=== PATIENT | male | born 1975 | race Two or more races ===

== ENCOUNTER 2024-03-22 21:09 | Emergency (ER) | payer OTHER ==
[~2024-03-22] VITALS: Ht 180.3 cm; Wt 139.0 kg
[2024-03-22] MEDS ORDERED: FLUORESCEIN SOD OPTH TEST STRIP LEFTEYE ONE (23:30)
[2024-03-22] MEDS ORDERED: IBUP-1455 PO (23:35)
[2024-03-22] MEDS ORDERED: CIPR0.3S67 OP (23:35)
[2024-03-22 23:39] VITALS: BP 140/80; PULSE 66; RESP 18; TEMP 98.2; O2SAT 98
[2024-03-22] MEDS ORDERED: IBUPROFEN 800 MG TAB PO ONE (23:45)
== END 2024-03-22 23:49 | disposition home or self-care (01) ==
LOC: ER 21:09
DX: S05.02XA Injury of conjunctiva and corneal abrasion without foreign body, left eye, initial encounter (principal); W22.8XXA Striking against or struck by other objects, initial encounter; Y93.89 Activity, other specified; Y92.092 Bedroom in other non-institutional residence as the place of occurrence of the external cause; Y99.8 Other external cause status